=== PATIENT | male | born 1980 | race Caucasian/White ===

== ENCOUNTER 2021-06-26 16:00 | Emergency (ER) | payer OTHER ==
[~2021-06-26] VITALS: Ht 185.4 cm; Wt 110.0 kg
[~2021-06-26 16:00] MED LIST: ETOMIDATE 40 MG/20 ML VIAL. ONE; SUCCINYLCHOLINE 200 MG/10 ML VIAL. ONE
[2021-06-26 16:21] LABS: BASO # 0.1 x10^3/uL (0.0-0.2); BASO % 1 % (0-3); EOS # 0.2 x10^3/uL (0.0-0.7); EOS % 1 % (0-3); HEMATOCRIT 47.4 % (39.0-53.0); LYMPH # 4.3 x10^3/uL (1.0-4.8); LYMPH % 30 % (24-48); MEAN CORPUSCULAR HEMOGLOBIN 30 pg (25-35); MEAN CORPUSCULAR HGB CONC 34 g/dL (31-37); MEAN CORPUSCULAR VOLUME 89 fL (79-100); MONO # 1.1 x10^3/uL (0.0-1.1); MONO % 8 % (0-9); NEUT # 8.5 x10^3uL (1.8-7.7); NEUT % 60 % (31-73); PLATELET COUNT 243 x10^3/uL (140-400); RED BLOOD COUNT 5.33 x10^6/uL (4.30-5.70); RED CELL DISTRIBUTION WIDTH 12.4 % (11.5-14.5); WHITE BLOOD COUNT 14.1 x10^3/uL (4.0-11.0)
[2021-06-26] MEDS ORDERED: MIDAZOLAM HCL PF 5 MG/5 ML VIAL. ONE (16:21)
[2021-06-26] MEDS ORDERED: IOHEXOL 300 MG/ML 75 ML VIAL. IV ONE (16:30)
[2021-06-26 16:33] LABS: ALBUMIN 4.4 g/dL (3.4-5.0); ALBUMIN/GLOBULIN RATIO 1.3 (1.0-1.7); CALCIUM 9.2 mg/dL (8.5-10.1); CREATININE 1.1 mg/dL (0.7-1.3); GFR 74.5; PHOSPHORUS 2.3 mg/dL (2.6-4.7); TOTAL BILIRUBIN 0.6 mg/dL (0.2-1.0); TOTAL PROTEIN 7.7 g/dL (6.4-8.2)
[2021-06-26 16:35] LABS: POTASSIUM 2.7 mmol/L (3.5-5.1)
--- NOTE | 2021-06-26 16:42 | RAD ---
INDICATION: Reason: POST INTUBATION / Spl. Instructions: / History: COMPARISON: None. FINDINGS: Single view of chest obtained. Endotracheal tube midthoracic trachea. Enteric tube seen coursing below the diaphragm. Hypoexpanded e xam with mild interstitial opacities. IMPRESSION: * Lines and tubes as above. * Hypoexpanded exam with some interstitial opacities bilaterally. These could be from hypoventilator y changes but can be further evaluated on the patient's CT to ensure that there is not edema, contusi on or interstitial infiltrate contributing to this appearance Electronically signed by: Torin Prabhakar MD (06/26/2021 4:40 PM) [id number]
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
[2021-06-26 16:55] VITALS: BP 170/76
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
[2021-06-26 17:29] LABS: AMPHETAMINE/METHAMPHETAMINE NEG (NEG); BARBITURATES NEG (NEG); BENZODIAZEPINES NEG (NEG); CANNABINOIDS NEG (NEG); COCAINE NEG (NEG); METHADONE NEG (NEG); OPIATES NEG (NEG); PHENCYCLIDINE NEG (NEG)
[2021-06-26 17:34] LABS: BACTERIA,URINE 0 /HPF (0-FEW); BILIRUBIN,URINE NEG (NEG); CLARITY,URINE CLEAR; COLOR,URINE YELLOW; GLUCOSE,URINE NEG (NEG); NITRITE,URINE NEG (NEG); RBC,URINE 0 /HPF (0-2); SQUAMOUS EPITHELIAL CELL,UR OCC /LPF; UROBILINOGEN,URINE 0.2 mg/dL (0.2 mg/dL); WBC,URINE 0 /HPF (0-4)
== END 2021-06-26 17:05 | disposition short-term general hospital (02) ==
LOC: ER 16:00 → EEVIPCON 16:00 → ER 17:05
DX: S06.309A Unspecified focal traumatic brain injury with loss of consciousness of unspecified duration, initial encounter (principal); S00.431A Contusion of right ear, initial encounter; S00.83XA Contusion of other part of head, initial encounter; Y00.XXXA Assault by blunt object, initial encounter; Y93.89 Activity, other specified; Y92.89 Other specified places as the place of occurrence of the external cause; Y99.8 Other external cause status
CPT/HCPCS: 31500; 36415; 51702; 70450; 71045; 71260; 72125; 74177; 80053; 80307; 81001; 83735; 84100; 85025; 85610; 99291; G0480; J0330; Q9967